=== PATIENT | male | born 1950 | race Caucasian/White ===

== ENCOUNTER 2017-05-25 12:38 | Inpatient (IN) | payer BC, MEDICARE ==
[~2017-05-25] VITALS: Ht 175.3 cm; Wt 113.0 kg
[~2017-05-25 12:38] MED LIST: CEPH500 PO; CYCL10 PO; HYDACE5 PO; IBUP200; NAPR500; RXCYCL10 PO; RXHYDACE PO
[2017-05-25 14:24] LABS: Alanine Aminotransfer (ALT/SGP 92 U/L (12-78); Albumin, Blood 3.3 g/dL (3.4-5.0); Albumin/Globulin Ratio 0.7 (0.8-1.8); Alk Phos 84 U/L (50-136); Anion Gap 10 mmol/L (6-16); Aspartate Aminotrans (AST/SGOT 83 U/L (12-37); Blood Urea Nitrogen 18 mg/dL (8-24); Bun/Creatinine Ratio 17.5 (12.0-20.0); CO2, Blood 21 mmol/L (21-32); Calcium, Blood 9.1 mg/dL (8.5-10.1); Chloride, Blood 102 mmol/L (98-108); Creatinine, Blood 1.03 mg/dL (0.60-1.20); Globulin, Blood 4.8 g/dL (2.2-4.0); Glomerular Filtration Rate >60 (60-); Glucose, Blood 105 mg/dL (70-99); Potassium, Blood 3.7 mmol/L (3.5-5.5); Sodium, Blood 133 mmol/L (136-145); Total Protein, Blood 8.1 g/dL (6.4-8.2)
[2017-05-25 14:58] LABS: BASOPHILS ABSOLUTE AUTO 0.02 K/mm3 (0.00-0.23); BASOPHILS PERCENT AUTO 0 % (0-2); EOSINOPHILS ABSOLUTE AUTO 0.03 K/mm3 (0.00-0.68); EOSINOPHILS PERCENT AUTO 0 % (0-6); Hematocrit 41.5 % (37.0-53.0); Hemoglobin 14.5 g/dL (13.5-17.5); IMMATURE GRAN ABSOLUTE AUTO 0.05 K/mm3 (0.00-0.10); IMMATURE GRAN PERCENT AUTO 1 % (0-1); LYMPHOCYTES ABSOLUTE AUTO 0.94 K/mm3 (0.84-5.20); LYMPHOCYTES PERCENT AUTO 10 % (21-46); MONOCYTES ABSOLUTE AUTO 0.58 K/mm3 (0.16-1.47); MONOCYTES PERCENT AUTO 6 % (4-13); Mean Corpuscular HGB 30.3 pg (26.0-34.0); Mean Corpuscular HGB Conc 34.9 g/dL (31.5-36.5); Mean Corpuscular Volume 87 fL (80-100); NEUTROPHILS ABSOLUTE AUTO 8.21 K/mm3 (1.96-9.15); NEUTROPHILS PERCENT AUTO 84 % (41-73); Platelet Count 191 K/mm3 (150-400); RDW Coefficient Variation 13.2 % (11.7-14.2); RDW Standard Deviation 41.8 fL (35.1-46.3); Red Blood Cell Count 4.78 M/mm3 (4.30-5.90); White Blood Cell Count 9.83 K/mm3 (4.00-11.30)
[2017-05-28] MEDS ORDERED: ACET325 PO (13:17)
[2017-05-28] MEDS ORDERED: AMOX875 PO (13:19)
[2017-05-28] MEDS ORDERED: NYSTRITC TOP (13:22)
== END 2017-05-28 14:34 | disposition home or self-care (01) | DRG 603 ==
LOC: MEDS 12:38 → ENPENDDIS 05-28 09:29 → MEDS 05-28 14:34
PROVIDERS: Family Medicine; Internal Medicine
DX: L03.115 Cellulitis of right lower limb (principal); L97.819 Non-pressure chronic ulcer of other part of right lower leg with unspecified severity; I87.2 Venous insufficiency (chronic) (peripheral); B35.4 Tinea corporis; K21.9 Gastro-esophageal reflux disease without esophagitis; E66.9 Obesity, unspecified; N40.0 Benign prostatic hyperplasia without lower urinary tract symptoms; E78.5 Hyperlipidemia, unspecified; J30.9 Allergic rhinitis, unspecified; G47.33 Obstructive sleep apnea (adult) (pediatric); R51 Headache; Z68.36 Body mass index [BMI] 36.0-36.9, adult; Z98.1 Arthrodesis status
CPT/HCPCS: 36415; 80048; 80053; 85025; 87040; 87493; J0295; J1650; J7030

== ENCOUNTER 2017-12-06 08:49 | Day surgery (SDC) | payer BC ==
[~2017-12-06] VITALS: Ht 175.3 cm; Wt 116.6 kg
[~2017-12-06 08:49] MED LIST changes: +ACET325 PO; +AMOX875 PO; +NYSTRITC TOP
== END 2017-12-06 11:28 | disposition home or self-care (01) ==
LOC: ORSCMMR 08:49 → ORD 09:30 → ORSCMMR 09:30
PROVIDERS: Internal Medicine Gastroenterology
PROC: 0DB68ZX Excision of Stomach, Via Natural or Artificial Opening Endoscopic, Diagnostic (ICD-10-PCS; principal; 2017-12-06 09:30)
PROC: 0DBM8ZX Excision of Descending Colon, Via Natural or Artificial Opening Endoscopic, Diagnostic (ICD-10-PCS; principal; 2017-12-06 09:30)
PROC: 0DB48ZX Excision of Esophagogastric Junction, Via Natural or Artificial Opening Endoscopic, Diagnostic (ICD-10-PCS; principal; 2017-12-06 09:30)
PROC: 0DB98ZX Excision of Duodenum, Via Natural or Artificial Opening Endoscopic, Diagnostic (ICD-10-PCS; principal; 2017-12-06 09:30)
PROC: 0D758ZZ Dilation of Esophagus, Via Natural or Artificial Opening Endoscopic (ICD-10-PCS; principal; 2017-12-06 09:30)
DX: R13.14 Dysphagia, pharyngoesophageal phase (principal); Z12.11 Encounter for screening for malignant neoplasm of colon; K21.0 Gastro-esophageal reflux disease with esophagitis; D12.4 Benign neoplasm of descending colon; G47.33 Obstructive sleep apnea (adult) (pediatric); E66.01 Morbid (severe) obesity due to excess calories; Z68.37 Body mass index [BMI] 37.0-37.9, adult
CPT/HCPCS: 88305; 88342; C1726; J2250; J3010; J7120

== ENCOUNTER 2018-05-31 15:09 | Emergency (ER) | payer OTHER, BC ==
[~2018-05-31] VITALS: Ht 175.3 cm; Wt 108.9 kg
[2018-05-31] MEDS ORDERED: Voltaren100 GM TOP (16:10)
== END 2018-05-31 16:17 | disposition home or self-care (01) ==
LOC: ER 15:09
DX: S29.012A Strain of muscle and tendon of back wall of thorax, initial encounter (principal); V49.9XXA Car occupant (driver) (passenger) injured in unspecified traffic accident, initial encounter
CPT/HCPCS: 72070; 99283-25

== ENCOUNTER 2020-01-05 09:49 | Day surgery (SDC) | payer BC ==
[~2020-01-05] VITALS: Ht 175.3 cm; Wt 111.1 kg
[~2020-01-05 09:49] MED LIST changes: +AZELASTINE137 MCG/01; +FLONASE SENSIM5.9 M1 NS; +IBUP200 PO; +Voltaren100 GM TOP
== END 2020-01-05 13:44 | disposition home or self-care (01) ==
LOC: ORSCSDS 09:49
PROVIDERS: Podiatrist Foot & Ankle Surgery
PROC: 0QBM0ZZ Excision of Left Tarsal, Open Approach (ICD-10-PCS; principal; 2020-01-05 11:45)
PROC: 0L8P0ZZ Division of Left Lower Leg Tendon, Open Approach (ICD-10-PCS; principal; 2020-01-05 11:45)
DX: M24.572 Contracture, left ankle (principal); M76.61 Achilles tendinitis, right leg; M72.2 Plantar fascial fibromatosis; G47.33 Obstructive sleep apnea (adult) (pediatric); K21.9 Gastro-esophageal reflux disease without esophagitis; E66.01 Morbid (severe) obesity due to excess calories; Z68.36 Body mass index [BMI] 36.0-36.9, adult
CPT/HCPCS: C1713; J0171; J0330; J0690; J1100; J1885; J2250; J2405; J2704; J2710; J3010; J7120

== ENCOUNTER 2023-07-12 09:13 | Day surgery (SDC) | payer MEDICARE ==
[2023-07-12] VITALS (15 sets, daily range): BP systolic 104–147; BP diastolic 58–91
[~2023-07-12] VITALS: Ht 172.7 cm; Wt 117.3 kg
[~2023-07-12 09:13] MED LIST changes: +Lactated Ringer's 1,000 ML IV SCH; +TAMS.4ER PO
--- NOTE | 2023-07-12 09:40 | NUR ---
PT TO DAY SURGERY FOR COLONOSCOPY. CHART REVIEWED. PLAN OF CARE DISCUSSED WITH PT. QUESTIONS ANSWERED.
--- NOTE | 2023-07-12 10:16 | NUR ---
2 IV ATTEMPTS BY JUAN
[2023-07-12] MEDS ORDERED: propofoL 60 ML IV ONE (10:23)
--- NOTE | 2023-07-12 10:38 | NUR ---
07/12/23 Manda Garza HISTORY, CHART, MEDICATIONS AND ALLERGIES REVIEWED BEFORE START OF PROCEDURE. PATIENT CONFIRMS NPO STATUS AND AGREES WITH SCHEDULED PROCEDURE. 3-LEAD EKG REVIEWED WITH PHYSICIAN PRIOR TO START OF PROCEDURE. MONITOR INTACT WITH CONTINUOUS PULSE OXIMETRY,CAPNOGRAPHY, 3-LEAD EKG, INTERMITTENT BP. SUPPLEMENTAL O2 TO BE TITRATED THROUGHOUT PROCEDURE TO MAINTAIN O2 SATURATION ABOVE 90%.
--- NOTE | 2023-07-12 11:45 | NUR ---
Discharge instructions reviewed with patient. Patient verbalizes understanding. Copy given to patient to take home. Patient States Post-Procedure ride home has been arranged. Discharged via wheelchair to private car for ride home.
== END 2023-07-12 11:40 | disposition home or self-care (01) ==
LOC: ORSCMMR 09:13 → ORD 10:15 → ORSCMMR 10:15 → ORD 10:30 → ORSCMMR 11:40
PROVIDERS: Internal Medicine Gastroenterology
PROC: 0DJD8ZZ Inspection of Lower Intestinal Tract, Via Natural or Artificial Opening Endoscopic (ICD-10-PCS; principal; 2023-07-12 10:15)
DX: Z12.11 Encounter for screening for malignant neoplasm of colon (principal); Z86.010 Personal history of colon polyps; G47.33 Obstructive sleep apnea (adult) (pediatric); E66.01 Morbid (severe) obesity due to excess calories; Z68.39 Body mass index [BMI] 39.0-39.9, adult; Z79.899 Other long term (current) drug therapy
CPT/HCPCS: J2704; J7120